=== PATIENT | male | born 1945 | race African-American/Black ===

== ENCOUNTER 2018-03-10 22:02 | Emergency (ER) | payer OTHER ==
[2018-03-10 22:17] VITALS: BP 119/76
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
== END 2018-03-10 23:48 | disposition home or self-care (01) ==
LOC: ER 22:02
DX: R60.0 Localized edema (principal); M79.604 Pain in right leg; M79.605 Pain in left leg; I10 Essential (primary) hypertension; E66.01 Morbid (severe) obesity due to excess calories; X37.0XXA Hurricane, initial encounter
CPT/HCPCS: 99283